=== PATIENT | female | born 1960 | race Caucasian/White ===

== ENCOUNTER 2023-02-02 22:38 | Emergency (ER) | payer MEDICAID ==
[~2023-02-02] VITALS: Ht 170.2 cm; Wt 64.0 kg
[2023-02-02 22:48] VITALS: BP 167/80; PULSE 112; RESP 20; TEMP 98.3; O2SAT 98
[2023-02-02] MEDS ORDERED: ACETAMINOPHEN 325MG TABLET PO ONE (23:15)
== END 2023-02-02 23:40 | disposition left against medical advice (07) ==
LOC: ER 22:38
DX: R51.9 Headache, unspecified (principal); I10 Essential (primary) hypertension
CPT/HCPCS: 99283